=== PATIENT | male | born 1990 | race African-American/Black ===

== ENCOUNTER 2018-02-20 09:42 | Emergency (ER) | payer MEDICAID, OTHER ==
[~2018-02-20] VITALS: Ht 177.8 cm; Wt 63.5 kg
[~2018-02-20 09:42] MED LIST: ACET-1770 PO; IBUP-1222 PO; LEVO750T6 PO; LOPE2CAP PO; MULT-412 PO; ONDA4TAB13 SL; THIA100T10 PO; [UNRECOGNIZED DRUG - OTHER] PO
[2018-02-20 09:43] VITALS: BP 149/65
[2018-02-20] MEDS ORDERED: IBUPROFEN 200 MG TABLET ONE (10:05)
[2018-02-20] MEDS ORDERED: IBUPROFEN 200 MG TABLET PO ONE (10:30)
[2018-02-20] MEDS ORDERED: ACETAMINOPHEN 500 MG TABLET ONE (10:42)
[2018-02-20] MEDS ORDERED: ACETAMINOPHEN 500 MG TABLET PO ONE (11:00)
== END 2018-02-20 11:03 | disposition home or self-care (01) ==
LOC: ED 09:56
DX: S60.221A Contusion of right hand, initial encounter (principal); W01.0XXA Fall on same level from slipping, tripping and stumbling without subsequent striking against object, initial encounter; Y93.89 Activity, other specified; Y92.89 Other specified places as the place of occurrence of the external cause; Y99.8 Other external cause status
CPT/HCPCS: 99284

== ENCOUNTER 2019-07-29 10:29 | Emergency (ER) | payer OTHER ==
[~2019-07-29] VITALS: Ht 175.3 cm; Wt 72.6 kg
[2019-07-29 10:33] VITALS: BP 156/62
--- NOTE | 2019-07-29 11:05 | NUR ---
KNOT TIER: PT TO ROOM FROM EMILIANO VAZQUEZ
[2019-07-29 11:54] LABS: ALANINE AMINOTRANSFERASE 17 U/L (12-78); ALBUMIN 3.7 g/dL (3.4-5.0); ANION GAP 4 mmol/L (5-15); CALCIUM 9.3 mg/dL (8.5-10.1); CHLORIDE 106 mmol/L (98-107); CREATININE 0.79 mg/dL (0.7-1.3)
[2019-07-29 11:57] LABS: ALKALINE PHOSPHATASE 53 U/L (45-117); BILIRUBIN,TOTAL 0.4 mg/dL (0.2-1.0); MEAN CORPUSCULAR HEMOGLOBIN 30.4 pg (27.5-34.5); MEAN CORPUSCULAR HGB CONC 32.5 g/dL (33.2-36.2); MEAN CORPUSCULAR VOLUME 93.7 fL (81-97); MEAN PLATELET VOLUME 7.3 fL (7.4-10.4); PLATELET COUNT 356 x10^3/uL (130-400); RED BLOOD COUNT 4.98 x10^6/uL (4.38-5.82); RED CELL DISTRIBUTION WIDTH 14.6 % (9.4-14.8); TOTAL PROTEIN 7.7 g/dL (6.4-8.2)
[2019-07-29 12:29] LABS: BASOPHILS # (AUTO) 0.03 x10^3/uL (0-0.1); BASOPHILS % (AUTO) 1 % (0-1); EOSINOPHILS # (AUTO) 0.43 x10^3/uL (0-0.4); EOSINOPHILS % (AUTO) 8 % (1-7); LYMPHOCYTES # (AUTO) 1.08 x10^3/uL (1-3.4); LYMPHOCYTES % (AUTO) 19 % (22-44); MD SCAN; MONOCYTES # (AUTO) 0.51 x10^3/uL (0.2-0.8); MONOCYTES % (AUTO) 9 % (2-9); NEUTROPHILS # (AUTO) 3.54 x10^3/uL (1.8-6.8); NEUTROPHILS % (AUTO) 63 % (42-75)
== END 2019-07-29 12:15 | disposition home or self-care (01) ==
LOC: ED 11:28
DX: B86 Scabies (principal); R11.10 Vomiting, unspecified
CPT/HCPCS: 36415; 80053; 85025; 99283; Q0177

== ENCOUNTER 2020-05-13 11:23 | Emergency (ER) | payer MEDICAID ==
[~2020-05-13] VITALS: Ht 170.2 cm; Wt 74.0 kg
--- NOTE | 2020-05-13 11:30 | NUR ---
INITIAL PT CONTACT. PT OLY. PER EMS PT HAD GLF WHERE HE HIT HIS HEAD TODAY, PT DENIES LOC. PT ALSO COMPLAINING OF L TOE WOUND AND L HAND PAIN, "UNABLE TO MOVE MY LEFT ARM AND HAND, THIS IS NEW. I DID FALL ON MY LEFT SIDE". PT SITTING UPRIGHT ON GURNEY, NAD, VSS. PT DENIES ANY NEEDS AT THIS TIME. CALL LIGHT AND BELONGINGS WITHIN REACH.
[2020-05-13 12:45] LABS: BASOPHILS % (AUTO) 0 % (0-1); EOSINOPHILS % (AUTO) 1 % (1-7); LYMPHOCYTES % (AUTO) 15 % (22-44); MD NO; MEAN CORPUSCULAR HEMOGLOBIN 29.7 pg (27.5-34.5); MEAN CORPUSCULAR HGB CONC 33.9 g/dL (33.2-36.2); MEAN PLATELET VOLUME 7.3 fL (7.4-10.4); MONOCYTES % (AUTO) 12 % (2-9); NEUTROPHILS % (AUTO) 73 % (42-75); PLATELET COUNT 233 x10^3/uL (130-400); RED BLOOD COUNT 4.91 x10^6/uL (4.38-5.82); RED CELL DISTRIBUTION WIDTH 13.6 % (9.4-14.8)
[2020-05-13 12:53] LABS: ALANINE AMINOTRANSFERASE 36 U/L (12-78); ALBUMIN 4.1 g/dL (3.4-5.0); ANION GAP 7 mmol/L (5-15); CALCIUM 9.6 mg/dL (8.5-10.1); CHLORIDE 107 mmol/L (98-107)
[2020-05-13 12:55] LABS: ALKALINE PHOSPHATASE 67 U/L (45-117); CREATININE 0.78 mg/dL (0.7-1.3); SALICYLATE LEVEL < 1.7 mg/dL (2.8-20.0); TOTAL PROTEIN 8.2 g/dL (6.4-8.2)
[2020-05-13 13:22] LABS: AMPHETAMINE SCREEN, URINE Negative (Negative); BARBITURATE SCREEN, URINE Negative (Negative); BENZODIAZEPINE SCREEN, URINE Negative (Negative); CANNABINOID SCREEN, URINE Positive (Negative); COCAINE SCREEN, URINE Negative (Negative); METHADONE SCREEN, URINE Negative (Negative); OPIATE SCREEN, URINE Negative (Negative)
--- NOTE | 2020-05-13 13:26 | NUR ---
BREAK RN: DR RAGSDALE AT BEDSIDE. TEST RESULTS REVIEWED. +LARGE STROKE BUT DR RAGSDALE DISCUSSED THAT STROKE APPEARS TO BE MUCH OLDER THAN THE PTS REPORTED 3 DAYS OF LEFT HAND ISSUES. LEFT FOOT WITH DRIED BLOOD OBSCURRING ASSESSMETN OF FOOT WOUNDS. PLAN TO SOAK FOOT IN BETADINE BATH DISCUSSED.
--- NOTE | 2020-05-13 13:50 | NUR ---
PT SITTING IN CHAIR SOAKING LEFT FOOT. PT PROVIDED MEAL TRAY. PT REPORTS NO COMPLAINTS AT THIS TIME, WCTM.
[2020-05-13 14:04] VITALS: BP 139/59
== END 2020-05-13 17:49 | disposition home or self-care (01) ==
LOC: ED 13:47
DX: I63.89 Other cerebral infarction (principal); S91.202A Unspecified open wound of left great toe with damage to nail, initial encounter; R00.0 Tachycardia, unspecified; Z76.0 Encounter for issue of repeat prescription; F17.200 Nicotine dependence, unspecified, uncomplicated; W01.0XXA Fall on same level from slipping, tripping and stumbling without subsequent striking against object, initial encounter; Y93.89 Activity, other specified; Y92.89 Other specified places as the place of occurrence of the external cause; Y99.8 Other external cause status
CPT/HCPCS: 36415; 70450; 80053; 80299; 80307; 80320; 80329; 85025; 99284; G0480

== ENCOUNTER 2020-05-21 11:33 | Emergency (ER) | payer MEDICAID ==
[~2020-05-21] VITALS: Ht 182.9 cm; Wt 77.3 kg
[2020-05-21 11:37] VITALS: BP 142/55
== END 2020-05-21 13:25 | disposition home or self-care (01) ==
LOC: ED 12:28
DX: S91.102A Unspecified open wound of left great toe without damage to nail, initial encounter (principal); Z86.73 Personal history of transient ischemic attack (TIA), and cerebral infarction without residual deficits; W22.8XXA Striking against or struck by other objects, initial encounter; Y93.89 Activity, other specified; Y92.488 Other paved roadways as the place of occurrence of the external cause; Y99.8 Other external cause status
CPT/HCPCS: 82962; 99283